=== PATIENT | female | born 1970 | race Caucasian/White ===

== ENCOUNTER → 2020-08-30 07:33 | Outpatient (CLI) | payer OTHER, SELFPAY ==
[2020-08-30] MEDS: COVID-19 VACC, Ad26(JANSSEN)/PF 0.5 ML IM (07:53)
== END ==
PROVIDERS: Visit Provider Internal Medicine
DX: Z23 Encounter for immunization (principal)
CPT/HCPCS: 0031A; 91303

== ENCOUNTER → 2021-03-23 10:24 | Outpatient (CLI) | payer OTHER, SELFPAY ==
[2021-03-23 12:45] LABS: COVID19 -Nasal RAPID Negative (Negative)
== END ==
PROVIDERS: Visit Provider Physician Assistant
DX: Z20.822 Contact with and (suspected) exposure to COVID-19 (principal); J02.9 Acute pharyngitis, unspecified
CPT/HCPCS: 87635

== ENCOUNTER → 2021-05-28 16:47 | Outpatient (CLI) | payer OTHER, SELFPAY ==
--- NOTE | 2021-05-28 | DI.RAD.S_ITS ---
PROCEDURE: XR KNEE LT 3V INDICATIONS: LEFT KNEE PAIN TECHNIQUE: 3 views of the knee were acquired. COMPARISON: None. FINDINGS: Bones: No fractures or dislocations. No suspicious bony lesions. Mild medial and patellofemoral compartment osteoarthritis. Soft tissues: No joint effusion. No suspicious soft tissue calcifications. IMPRESSION: Mild osteoarthritis. Dictated by: Maru Chicas MD, PhD on 05/29/2021 at 15:50 Approved by: Maru Chicas MD, PhD on 05/29/2021 at 15:51
== END ==
PROVIDERS: PCP Internal Medicine; Referring Provider Internal Medicine; Visit Provider Internal Medicine
DX: M25.562 Pain in left knee (principal); M17.12 Unilateral primary osteoarthritis, left knee
CPT/HCPCS: 73562

== ENCOUNTER → 2021-06-06 17:38 | Outpatient (CLI) | payer OTHER, SELFPAY ==
--- NOTE | 2021-06-06 | DI.MRI.S_ITS ---
PROCEDURE: MR KNEE LT WO CON INDICATIONS: Pain in left knee TECHNIQUE: Noncontrast sagittal PD fast spin echo and T2 fast spin echo with fat saturation, sagittal 3-D FLASH with fat saturation; coronal T1 spin echo and PD fast spin echo with fat saturation, and axial PD fast spin echo with fat saturation through the knee. COMPARISON: [facility], CR, XR KNEE LT 3V, 05/28/2021, 16:42. FINDINGS: Image quality: Excellent. Menisci: There is complex tear of the posterior horn of the medial meniscus. The lateral meniscus demonstrates normal morphology and internal signal. The meniscal root ligaments appear intact. Cruciate ligaments: The anterior and posterior cruciate ligaments appear intact. Medial structures: The medial collateral ligament appears intact. The semimembranosus tendon insertions and meniscocapsular junction appear intact. Visualized portions of the pes anserinus tendons appear normal. No abnormal bursal fluid. Lateral structures: The lateral collateral ligament, long and short heads of the biceps femoris tendon appear intact. The popliteus tendon appears normal. Iliotibial band appears normal. Anterior structures: The quadriceps and patellar tendons appear intact. Mild quadriceps tendinitis with tendon thickening and linear hyperintense signal. Patellar alignment is normal. No femoral trochlear dysplasia or ventral trochlear prominence. No edema in the infrapatellar fat pad. Bones and cartilage: No fractures. Mild edema in the medial tibial plateau and posterior superior medial femoral condyle. There is tricompartmental chondral malacia with cartilage thinning and fibrillation, most pronounced in the medial femorotibial compartment. Joint space: There is small knee joint effusion. Trace Rhodes's cyst. Normal appearing synovial plicae are incidentally noted. IMPRESSION: 1. Complex tear of the posterior horn of the medial meniscus. 2. 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 3. Mild quadriceps tendinitis. 4. Mild marrow edema in the medial tibial plateau and posterior superior medial femoral condyle, most likely reactive or due to mild contusion. 5. Small knee joint effusion. Dictated by: Ramses Riley M.D. on 06/07/2021 at 8:06 Approved by: Ramses Riley M.D. on 06/07/2021 at 9:12
== END ==
PROVIDERS: PCP Internal Medicine; Referring Provider Internal Medicine; Visit Provider Internal Medicine
DX: S83.232A Complex tear of medial meniscus, current injury, left knee, initial encounter (principal); M94.262 Chondromalacia, left knee; M25.462 Effusion, left knee; M76.892 Other specified enthesopathies of left lower limb, excluding foot; M25.562 Pain in left knee
CPT/HCPCS: 73721

== ENCOUNTER → 2023-04-28 12:30 | Outpatient (CLI) | payer OTHER, SELFPAY ==
--- NOTE | 2023-04-28 | DI.RAD.S_ITS ---
PROCEDURE: XR KNEE RT 3V INDICATIONS: KNEE PAIN TECHNIQUE: 3 views of the knee were acquired. COMPARISON: [facility], CR, XR KNEE LT 3V, 05/28/2021, 16:42. FINDINGS: Bones: No fractures or dislocations. Joint spaces are maintained. Tiny patellofemoral compartment juxta-articular lateral osteophyte. No suspicious bony lesions. Soft tissues: Small suprapatellar joint effusion. No suspicious soft tissue calcifications. IMPRESSION: No acute osseous abnormality. Dictated by: Anastasia Rowe M.D. on 04/28/2023 at 18:36 Approved by: Anastasia Rowe M.D. on 04/28/2023 at 18:40
== END ==
PROVIDERS: PCP Internal Medicine; Referring Provider Internal Medicine; Visit Provider Internal Medicine
DX: M25.561 Pain in right knee (principal)
CPT/HCPCS: 73562

== ENCOUNTER → 2023-10-20 17:02 | Outpatient (CLI) | payer OTHER, SELFPAY ==
--- NOTE | 2023-10-20 17:08 | DI.RAD.S_ITS ---
PROCEDURE: XR THORACIC SPINE 2V INDICATIONS: CHRONIC BACK PAIN TECHNIQUE: 3 views of the thoracic spine were acquired. COMPARISON: None. FINDINGS: Bones: No fractures or dislocations. No suspicious bony lesions. 12 pairs of ribs are noted, and appear intact where visualized. Levocurvature of the upper thoracic spine. Mild degenerative changes with disc height loss and degenerative endplate changes. Soft tissues: No paravertebral stripe thickening. IMPRESSION: Mild degenerative changes of the thoracic spine. Dictated by: Dylan Horner M.D. on 10/21/2023 at 8:13 Approved by: Dylan Horner M.D. on 10/21/2023 at 8:15
--- NOTE | 2023-10-20 17:08 | DI.RAD.S_ITS ---
PROCEDURE: XR LUMBAR SPINE 2-3V INDICATIONS: CHRONIC BACK PAIN TECHNIQUE: 3 views of the lumbar spine were acquired. COMPARISON: None. FINDINGS: Bones: 5 [id number] vertebrae are present. Minimal dextrocurvature of the lumbar spine. Grade 1 anterolisthesis of L4 on L5. Grade 2 anterolisthesis of L5 on S1. Degenerative changes lumbar spine, most pronounced at L5-S1 with severe disc height loss. No vertebral body compression fractures. No suspicious bony lesions. Soft tissues: Overlying bowel gas pattern is normal. No suspicious soft tissue calcifications. IMPRESSION: Degenerative changes of the lower lumbar spine with grade 2 anterolisthesis of L5 on S1 and severe disc height loss. Dictated by: Dylan Horner M.D. on 10/21/2023 at 8:11 Approved by: Dylan Horner M.D. on 10/21/2023 at 8:13
== END ==
PROVIDERS: PCP Internal Medicine; Referring Provider Internal Medicine; Visit Provider Internal Medicine
DX: M47.817 Spondylosis without myelopathy or radiculopathy, lumbosacral region (principal); M47.814 Spondylosis without myelopathy or radiculopathy, thoracic region; M43.17 Spondylolisthesis, lumbosacral region; M54.9 Dorsalgia, unspecified; G89.29 Other chronic pain
CPT/HCPCS: 72070; 72100

== ENCOUNTER → 2023-11-25 12:04 | Outpatient (CLI) | payer OTHER, SELFPAY ==
--- NOTE | 2023-11-25 12:07 | DI.RAD.S_ITS ---
PROCEDURE: XR CHEST 2V INDICATIONS: Other chest pain TECHNIQUE: 2 views of the chest were acquired. COMPARISON: None. FINDINGS: Surgical changes and devices: None. Lungs and pleura: Lungs are clear. No pleural effusions or pneumothorax. Mediastinum: Mediastinal contours are normal. Heart size is normal. Bones and chest wall: No suspicious bony abnormalities. Soft tissues appear unremarkable. IMPRESSION: No acute cardiopulmonary abnormality is seen. Dictated by: Denys Lorenzo M.D. on 11/25/2023 at 13:36 Approved by: Denys Lorenzo M.D. on 11/25/2023 at 13:36
== END ==
PROVIDERS: PCP Internal Medicine; Referring Provider Internal Medicine; Visit Provider Internal Medicine
DX: R07.89 Other chest pain (principal)
CPT/HCPCS: 71046

== ENCOUNTER → 2023-12-12 07:46 | Outpatient (CLI) | payer OTHER, SELFPAY ==
--- NOTE | 2023-12-12 13:29 | DI.NM.S_ITS ---
DATE OF SERVICE: 12/12/2023 EXERCISE PERFUSION STUDY INDICATIONS: Chest pain. CARDIAC STRESS: The patient underwent exercise stress test under the supervision of an attending staff using standard J Carlos protocol. The patient walked on J Carlos protocol for 12 minutes and achieved maximum heart rate of 144, which was 86% of target heart rate. Normal blood pressure response. Resting blood pressure 101/78 and peak blood pressure 146/80 mmHg. Baseline rhythm sinus. During stress, no convincing ischemic changes seen. No significant arrhythmias. The patient achieved 11.8 METs of workload, CLIFF -57%. No chest pain. The patient felt fatigue. No significant arrhythmias. CONCLUSION: Exercise stress test is negative for inducible ischemia. Excellent exercise tolerance. Normal hemodynamic response. No significant arrhythmias. No anginal symptoms. Overall, low-risk exercise stress test. Yasir Ita - JORGE/monica/JURGEN doc#: [id number]/job#: [id number] dd: 12/12/2023 12:52:00 dt: 12/12/2023 13:01:00 DICTATING /COPIES TO: Jacqueline Pineda MD COPIES MNE: MIKIE;
== END ==
PROVIDERS: PCP Internal Medicine; Referring Provider Internal Medicine; Visit Provider Internal Medicine
DX: R07.89 Other chest pain (principal)
CPT/HCPCS: 93017

== ENCOUNTER → 2024-03-27 08:12 | Outpatient (CLI) | payer OTHER, SELFPAY ==
--- NOTE | 2024-03-27 08:13 | DI.MG.S_ITS ---
BILATERAL DIGITAL SCREENING MAMMOGRAM 3D/2D WITH CAD: 03/27/2024 CLINICAL: Routine screening. Comparison is made to exams dated: 01/14/2023 mammogram and 12/18/2020 mammogram - [facility]. The breasts are heterogeneously dense, which may obscure small masses (category c / 51-75% glandular tissue). Current study was also evaluated with a Computer Aided Detection (CAD) system. There is a possible oval asymmetry in the right breast posterior depth lateral region seen on the craniocaudal view only. No other significant masses, calcifications, or other findings are seen in either breast. IMPRESSION: INCOMPLETE: NEED ADDITIONAL IMAGING EVALUATION The possible oval asymmetry in the right breast is indeterminate. Additional views with possible ultrasound are recommended. Based on the Tyrer Cuzick model (a risk assessment model) the patient's lifetime risk is 12.7% and her 10 year risk is 3.5%. According to the ACR, ACS, and NCCN guidelines, an annual breast MRI exam along with mammogram is recommended if the patient's lifetime risk is 20% or greater. This exam was interpreted at Station ID: [id number]. NOTE: For mammograms, a report in lay terms will be sent to the patient. Approximately 15% of breast malignancies will not be visualized mammographically. In the management of a palpable breast mass, a negative mammogram must not discourage biopsy of a clinically suspicious lesion. Electronically Signed By: Oliverio David M.D. aty/:03/27/2024 13:51:55 letter sent: Additional Imaging Needed ACR BI-RADS Category 0: Incomplete: Need Additional Imaging Evaluation
== END ==
LOC: MAMMO 08:12
PROVIDERS: PCP Internal Medicine; Referring Provider Internal Medicine; Visit Provider Internal Medicine
DX: Z12.31 Encounter for screening mammogram for malignant neoplasm of breast (principal); R92.333 Mammographic heterogeneous density, bilateral breasts
CPT/HCPCS: 77063; 77067

== ENCOUNTER → 2024-04-19 13:33 | Outpatient (CLI) | payer OTHER, SELFPAY ==
--- NOTE | 2024-04-19 13:33 | DI.MG.S_ITS ---
UNILATERAL RIGHT DIGITAL DIAGNOSTIC MAMMOGRAM 3D/2D WITH ADDITIONAL VIEWS: 04/19/2024 CLINICAL: Additional evaluation requested from prior study. Comparison is made to exams dated: 01/14/2023 mammogram - [facility], 03/27/2024 mammogram - [facility], and 12/18/2020 mammogram - [facility]. The breasts are heterogeneously dense, which may obscure small masses (category c / 51-75% glandular tissue). There is an asymmetry in the right breast posterior depth lateral region seen on the craniocaudal view only. This is not seen in additional views. No other significant masses or calcifications are seen in the breast. IMPRESSION: NEGATIVE There is no mammographic evidence of malignancy. Return to annual mammogram screening schedule is recommended. Based on the Tyrer Cuzick model (a risk assessment model) the patient's lifetime risk is 12.7% and her 10 year risk is 3.5%. According to the ACR, ACS, and NCCN guidelines, an annual breast MRI exam along with mammogram is recommended if the patient's lifetime risk is 20% or greater. This exam was interpreted at Station ID: [id number]. NOTE: For mammograms, a report in lay terms will be sent to the patient. Approximately 15% of breast malignancies will not be visualized mammographically. In the management of a palpable breast mass, a negative mammogram must not discourage biopsy of a clinically suspicious lesion. Electronically Signed By: Robbin keys/moe:04/19/2024 13:55:31 letter sent: Normal Exam ACR BI-RADS Category 1: Negative
== END ==
PROVIDERS: PCP Internal Medicine; Referring Provider Internal Medicine; Visit Provider Internal Medicine
DX: R92.8 Other abnormal and inconclusive findings on diagnostic imaging of breast (principal); R92.333 Mammographic heterogeneous density, bilateral breasts
CPT/HCPCS: 77065; G0279

== ENCOUNTER 2024-08-28 18:56 | Emergency (ER) | payer OTHER, SELFPAY ==
[2024-08-28 18:59] VITALS: BP 149/77; PULSE 71; RESP 16; TEMP 36.6; O2SAT 100; BMI 22.3
--- NOTE | 2024-08-28 19:03 | DI.US.S_ITS ---
PROCEDURE: US PERIPH VENOUS LOW EXTREM LT INDICATIONS: LLE EDEMA POST TRAVEL TECHNIQUE: Real-time imaging, as well as color and pulse Doppler interrogation, were performed of the lower extremity deep veins from the inguinal ligament to the popliteal fossa, with documentation of the visualized calf veins. COMPARISON: None. FINDINGS: The common femoral, femoral, popliteal, and the visualized calf veins are normally compressible, and free of intraluminal thrombus. Color and pulse Doppler demonstrate normal phasic intraluminal flow. There is normal augmentation response to distal compression maneuver. IMPRESSION: 1. No DVT in the left lower extremity. Dictated by: Yasmeen Veliz M.D. on 08/28/2024 at 20:33 Approved by: Yasmeen Veliz M.D. on 08/28/2024 at 20:33
--- NOTE | 2024-08-28 22:55 | ED.EXTPRO ---
HPI - Extremity Problem General Chief complaint: Extremity Problem,Nontraumatic Stated complaint: left leg px Time Seen by Provider: 08/28/24 22:55 Source: patient Mode of arrival: Ambulatory History of Present Illness HPI Narrative: 53-year-old female recently traveled to [facility] had left posterior calf tattoo placed a few days ago, early departure from [place] then to [facility] then up to [place] and bus up to home area, with right-sided leg swelling without pain. No shortness of breath or chest pain. No fevers or chills. No redness in the area of the tattoo. No previous blood clotting problems. She does not take blood thinner medications chronically. Related Data Home Medications Medication Instructions Recorded Confirmed CALCIUM CARBONATE (#CALCIUM) 500 mg PO Q DAY ##0 09/19/11 08/08/24 MULTIVITAMIN (One Daily 1 tab PO Q DAY ##0 09/19/11 08/08/24 Multivitamin) estradiol 0.025 mg/24 hr 1 patch transdermal 2XW 08/08/24 08/08/24 semiweekly transdermal patch Previous Rx's Medication Instructions Recorded erythromycin 5 mg/gram (0.5 %) eye 0.5 inch ophthalmic (eye) 5XD 08/08/24 ointment Conjunctivitis #3.5 grams Allergies Allergy/AdvReac Type Severity Reaction Status Date / Time ibuprofen AdvReac Mild INFLAMMED Verified 08/28/24 18:59 JOINTS Patient History Surgical History Status post dilation and curettage Status post dilation and curettage Family History Father Age: 78 Aneurysm Heart disease Grandfather Heart disease Grandfather Cancer Stroke Grandmother Arthritis Sister Age: 54 Overweight Social History Smoking Status: Never smoker Smoking Status: Never smoker Exam Narrative Exam Narrative: GENERAL: Well-developed patient, in mild distress. HEAD: Atraumatic. Normocephalic. EYES: Pupils equal round and reactive. Extraocular motions intact. No scleral icterus. No injection or drainage. ENT: Nose without bleeding, purulent drainage. Throat without erythema, tonsillar hypertrophy or exudate. Airway patent. NECK: Trachea midline. Non tender CARDIOVASCULAR: Regular rate and rhythm without murmurs, gallops, or rubs. RESPIRATORY: Clear to auscultation. Breath sounds equal bilaterally. No wheezes, rales, or rhonchi. GASTROINTESTINAL: Abdomen soft, non-tender, nondistended. EXTREMITIES: Left posterior calf tattoo large area proximally 15 x 12 cm, no surrounding or associated erythema. No palpable cords. No significant swelling now, patient feels swelling has improved since initial triage. BACK: Nontender without deformity or crepitance. No flank tenderness. NEURO: AOx3. Motor functions grossly nonfocal SKIN: No rash or erythema of visible areas Initial Vital Signs Initial Vital Signs: Vital Signs Temperature 97.8 F 08/28/24 18:59 Pulse Rate 71 08/28/24 18:59 Respiratory Rate 16 08/28/24 18:59 Blood Pressure 149/77 H 08/28/24 18:59 Pulse Oximetry 100 08/28/24 18:59 Oxygen Delivery Method Room Air 08/28/24 18:59 Course Orders Ordered: ED Orders 08/28/24 19:03 [facility] venous low extrem lt Stat Vital Signs Vital signs: Vital Signs - 8 hr 08/28/24 18:59 Temperature 97.8 F Pulse Rate 71 Respiratory Rate 16 Blood Pressure 149/77 H Pulse Oximetry 100 Oxygen Delivery Method Room Air MDM - Extremity (Nontraumatic) Imaging Data Ultrasound lower extremity venous Doppler: Radiologist's Impression: [place] [address] Ultrasound Report Signed Patient: Ita Cooley MR#: [id number] : 1970 Acct:[id number] Age/Sex: 53 / F Date of Service: 08/28/24 Loc: ED Accession Number: [id number] Procedure: perip venous low extrem lt Ordering Provider: Herber Partida MD PROCEDURE: PERIP VENOUS LOW EXTREM LT INDICATIONS: LLE EDEMA POST TRAVEL TECHNIQUE: Real-time imaging, as well as color and pulse Doppler interrogation, were performed of the lower extremity deep veins from the inguinal ligament to the popliteal fossa, with documentation of the visualized calf veins. COMPARISON: None. FINDINGS: The common femoral, femoral, popliteal, and the visualized calf veins are normally compressible, and free of intraluminal thrombus. Color and pulse Doppler demonstrate normal phasic intraluminal flow. There is normal augmentation response to distal compression maneuver. IMPRESSION: 1. No DVT in the left lower extremity. Dictated by: Yasmeen Veliz M.D. on 08/28/2024 at 20:33 Approved by: Yasmeen Veliz M.D. on 08/28/2024 at 20:33 [facility] Narrative Medical decision making narrative: 53-year-old female with recent left posterior calf tattoo few days ago, then long-distance air travel from [place] to [place] to [place], with bus trip of from [facility] to home [facility], noting swelling to the left leg. No pain. Concern for DVT. Ultrasound venous Doppler study of the left calf ordered from triage. Preliminary ultrasound negative sono tech. Await Radiology report. Ultrasound left lower extremity, no venous Doppler evidence for clot. See radiology report. Advised further elevation, could consider compression stockings. No fever or obvious erythema or cellulitic component of swelling from recent tattoo at this time. Return precautions discussed. Discharged home. Discharge Plan Departure Patient Disposition: Home Clinical Impression: Edema of left lower extremity Activity Restrictions/Additional Instructions: Ms Cooley, History of recent left posterior calf tattoo placed in [place], then long-distance travel throughout the day from [place] to [place] to [place], followed by bus travel from [place] up to [facility], noted to have swelling in the left calf and ankle foot area. Improved by the time your evaluated. Ultrasound done to evaluate for blood clot. No deep vein thrombosis confirmed by ultrasound venous Doppler flow ultrasound today. You did not have a fever periods there did not seem to be redness or infectious changes to your tattoo, looked to be well placed and in good condition. Hold antibiotics for now. Elevate extremity. Consider use of light compression socks. Recheck if not improved in the next couple of days, or earlier if any change worsening symptoms or any concerns prior. Thank you for allowing our team to evaluate you today. Prescriptions: No Action estradiol 0.025 mg/24 hr patch semiweekly 1 patch transdermal 2XW Rx Instructions: apply 1 patch for 3 days alternating with 1 patch for 4 days each week erythromycin 5 mg/gram (0.5 %) ointment 0.5 inch ophthalmic (eye) 5XD Qty: 3.5 0RF CALCIUM CARBONATE (#CALCIUM) 500 mg PO Q DAY Qty: 0 MULTIVITAMIN (One Daily Multivitamin) 1 tab PO Q DAY Qty: 0 Referrals: Angelika Wagner ARNP [Primary Care Provider] - Stand Alone Forms: Patient Portal/API/Survey
[2024-08-28 23:15] VITALS: BP 117/67; PULSE 58; RESP 15; O2SAT 98
== END 2024-08-28 23:20 | disposition home or self-care (01) ==
PROVIDERS: Emergency Provider Emergency Medicine; PCP Internal Medicine
DX: R60.0 Localized edema (principal)
CPT/HCPCS: 93971; 99281; 99283

== ENCOUNTER → 2025-01-24 06:53 | Outpatient (CLI) | payer OTHER, SELFPAY ==
[2025-01-24 08:22] LABS: Add Manual Diff / Slide Review NO; Hematocrit 40.5 % (36-46); Hemoglobin 13.5 g/dL (12.0-16.0); Lymphocytes Absolute Auto 2300 /uL (1100-4500); Mean Corpuscular HGB Conc 33.2 % (30-36); Mean Corpuscular Hemoglobin 30.1 PG (26-34); Mean Corpuscular Volume 90.8 fL (80-100); Platelet Count 222 X10^3/uL (150-400)
[2025-01-24 08:56] LABS: Alanine Aminotransferase 16 IU/L (<35); Albumin 4.3 g/dL (3.5-5.0); Albumin Globulin Ratio 1.7 (1.0-2.8); Alkaline Phosphatase 68 U/L (38-126); Blood Urea Nitrogen 15 mg/dL (7-17); Calcium 8.9 mg/dL (8.4-10.2); Carbon Dioxide 28 mmol/L (22-32); Chloride 104 mmol/L (98-107); Cholesterol 181 mg/dL (140-199); Estimated Glomerular Filt Rate > 60 mL/min (>60); Globulin 2.5 g/dL (1.7-4.1); Glucose 96 mg/dL (70-99); HDL Cholesterol 68 mg/dL (40-60); HEMOLYSIS < 15 (0-50); Potassium 4.3 mmol/L (3.4-5.1); Sodium 140 mmol/L (137-145); Total Protein 6.8 g/dL (6.3-8.2); Triglycerides 55 mg/dL (35-150)
[2025-01-24 08:59] LABS: Progesterone, Total 13.70 ng/mL
== END ==
PROVIDERS: PCP Internal Medicine; Referring Provider Naturopath; Visit Provider Naturopath
DX: Z00.00 Encounter for general adult medical examination without abnormal findings (principal); N95.9 Unspecified menopausal and perimenopausal disorder
CPT/HCPCS: 36415; 80053; 80061; 82672; 84144; 85025

== ENCOUNTER → 2025-04-23 07:50 | Outpatient (CLI) | payer OTHER, SELFPAY ==
--- NOTE | 2025-04-23 07:52 | DI.MG.S_ITS ---
MM screening mammo BI: 04/23/2025. BI-RADS: 1
== END ==
LOC: MAMMO 07:51
PROVIDERS: PCP Naturopath; Referring Provider Internal Medicine; Visit Provider Internal Medicine
DX: Z12.31 Encounter for screening mammogram for malignant neoplasm of breast (principal); R92.333 Mammographic heterogeneous density, bilateral breasts
CPT/HCPCS: 77063; 77067